=== PATIENT | male | born 2000 | race Two or more races ===

== ENCOUNTER 2023-08-26 18:54 | Emergency (ER) | payer MEDICAID, OTHER ==
[~2023-08-26] VITALS: Ht 170.2 cm; Wt 71.0 kg
[2023-08-26 18:54] VITALS: BP 149/71; PULSE 76; RESP 20; O2SAT 98
[2023-08-26] MEDS ORDERED: CLIN150C18 PO (21:01)
[2023-08-26] MEDS ORDERED: HYDR-4902 PO (21:01)
[2023-08-26] MEDS ORDERED: PRED20TA2 PO (21:01)
[2023-08-26] MEDS ORDERED: BENZLOZ2 MT (21:01)
[2023-08-26] MEDS: DexAMETHasone SOD PHOS 10MG/1ML VIAL INJ IM ONE (21:17)
[2023-08-26] MEDS: HYDROcodone-ACET 5/325MG TAB PO ONE (21:17)
[2023-08-26] MEDS: KETOROLAC TROMETH 60MG/2ML VIAL IM ONE (21:18)
[2023-08-26] MEDS: cefTRIAXone SOD 1,000 MG VL IM ONE (21:19)
== END 2023-08-26 21:26 | disposition home or self-care (01) ==
LOC: ER 18:54
DX: J03.90 Acute tonsillitis, unspecified (principal); K08.89 Other specified disorders of teeth and supporting structures; R68.84 Jaw pain
CPT/HCPCS: 96372; 99284; J0696; J1100; J1885

== ENCOUNTER 2023-09-14 14:34 | Emergency (ER) | payer MEDICAID ==
[~2023-09-14] VITALS: Ht 167.6 cm; Wt 149.5 kg
[~2023-09-14 14:34] MED LIST: BENZLOZ2 MT; CLIN150C18 PO; HYDR-4902 PO; PRED20TA2 PO
[2023-09-14 15:15] VITALS: BP 113/47; PULSE 90; RESP 20; O2SAT 96
[2023-09-14 17:36] LABS: Urine Bacteria None Seen /hpf (None Seen)
[2023-09-14 17:49] LABS: Urine Blood Negative /uL (Negative); Urine Clarity Clear (Clear); Urine Color Light-Yellow (Yellow); Urine Protein, UAD Negative (Negative); Urine Specific Gravity 1.022 (1.001-1.035); Urine Urobilinogen Normal (Negative); Urine WBC 1 /hpf (0 - 3)
[2023-09-14 17:50] LABS: Basophils # (auto) 0.1 10 ^3/uL (0-0.2); Basophils % (auto) 0.8 % (0.0-2.0); Eosinophils # (auto) 0.2 10 ^3/uL (0-0.8); Eosinophils % (auto) 3.3 % (0.0-7.0); Hemoglobin 14.1 g/dL (13.5-17.5); Lymphocytes % (auto) 40.9 % (10.0-50.0); Mean Corpuscular Hemoglobin 27.4 pg (28.0-32.0); Mean Corpuscular Hgb Conc. 32.7 g/dL (32.0-36.0); Mean Corpuscular Volume 83.8 fL (80.0-100.0); Monocytes # (auto) 0.6 10 ^3/uL (0-1.3); Monocytes % (auto) 7.5 % (0.0-12.0); Neutrophils # (auto) 3.5 10 ^3/uL (1.6-8.6); Neutrophils % (auto) 47.5 % (37.0-80.0); Nucleated Red Blood Cells % 0.1 %; Red Blood Cells 5.13 10^6/uL (4.5-5.90); Red Cell Distribution Width 14.1 % (11.8-14.3); White Blood Cell 7.4 10^3/uL (4.4-10.8)
[2023-09-14 18:08] LABS: Alanine Aminotransferase 21 U/L (7-40); Albumin 4.5 g/dL (3.2-4.8); Alkaline Phosphatase 61 U/L (46-116); Anion Gap 5 (5-15); Aspartate Aminotransferase 21 U/L (13-40); BUN/Creatinine Ratio 10.3 (10.0-20.0); Blood Urea Nitrogen 10 mg/dL (9-23); Calcium 9.8 mg/dL (8.5-10.1); Carbon Dioxide 29 mmol/L (20-30); Chloride 108 mmol/L (98-107); Glucose 94 mg/dL (74-106); Sodium 142 mmol/L (136-145)
[2023-09-14 18:09] LABS: Bilirubin, Total 0.2 mg/dL (0.2-1.0); Total Protein 7.2 g/dL (5.7-8.2)
[2023-09-14] MEDS ORDERED: ZOFR4T PO (19:57)
[2023-09-14] MEDS ORDERED: DICY10CA PO (19:57)
[2023-09-14] MEDS ORDERED: FAMO20TA10 PO (19:59)
[2023-09-14] MEDS: ONDANSETRON ODT 4 MG TAB PO ONE (20:27)
[2023-09-14] MEDS: FAMOTIDINE 20 MG TAB PO ONE (20:27)
[2023-09-14] MEDS: DICYCLOMINE HCL (10MG/ML) 2 ML AMPULE IM ONE (20:30)
== END 2023-09-14 19:54 | disposition home or self-care (01) ==
LOC: ER 14:34
DX: I88.0 Nonspecific mesenteric lymphadenitis (principal); K42.9 Umbilical hernia without obstruction or gangrene
CPT/HCPCS: 36415; 74176; 80053; 81001; 83690; 85025; 99284; Q0162

== ENCOUNTER 2023-11-21 20:22 | Emergency (ER) | payer MEDICAID ==
[~2023-11-21] VITALS: Ht 170.2 cm; Wt 151.8 kg
[~2023-11-21 20:22] MED LIST changes: +DICY10CA PO; +FAMO20TA10 PO; +ZOFR4T PO
[2023-11-22 00:15] VITALS: BP 115/77; PULSE 94; RESP 20; TEMP 98; O2SAT 96
[2023-11-22] MEDS: DICYCLOMINE HCL (10MG/ML) 2 ML AMPULE IM ONE (00:16)
[2023-11-22] MEDS ORDERED: PHENSUP38 PR (01:25)
[2023-11-22] MEDS ORDERED: DICY10CA PO (01:25)
== END 2023-11-22 01:45 | disposition home or self-care (01) ==
LOC: ER 20:22
DX: K64.9 Unspecified hemorrhoids (principal); K62.5 Hemorrhage of anus and rectum
CPT/HCPCS: 74018; 96372; 99283; J0500